=== PATIENT | female | born 1990 | race Hispanic/Latino ===

== ENCOUNTER → 2017-11-30 10:54 | Outpatient (CLI) | payer OTHER, SELFPAY ==
[2017-12-01 13:53] LABS: Strep Grp B PCR NEG for Grp B Strep
== END ==
PROVIDERS: PCP Family Medicine; Visit Provider Family Medicine
DX: Z36.9 Encounter for antenatal screening, unspecified (principal); Z3A.36 36 weeks gestation of pregnancy
CPT/HCPCS: 87653

== ENCOUNTER 2017-12-29 08:40 | Outpatient (CLI) | payer OTHER, SELFPAY ==
--- NOTE | 2017-12-29 09:32 | PM.OBTRLD ---
Visit Information Visit Information Date of evaluation: 12/29/17 Primary OB Provider: Fidelina Delaney Reason for Evaluation: Yes non-stress test non-stress test reason: other (Postdates) [facility] Medical History [place] teeth extracted (Resolved) Surgical History History of third molar tooth extraction Family History Sister Diabetes mellitus Social History marital status: unmarried,living together occupational status: employed Smoking Status: Never smoker alcohol intake: never substance use type: does not use Evaluation Evaluation Baseline heart rate: 130 Variability: Moderate (11-25) monitor accelerations: Present monitor decelerations: Absent Uterine Contraction Intensity: Mild Category of Tracing: I Diagnosis, Plan/Disposition Final Diagnosis (1) 41 weeks gestation of : Current Visit: Yes Status: Acute Plan/Disposition Plan: Postdates NST reactive. Patient scheduled for induction 12/30/17.
--- NOTE | 2017-12-29 09:35 | P.TNLD_ITS ---
Visit Information Visit Information Date of evaluation: 12/29/17 Primary OB Provider: Fidelina Delaney Reason for Evaluation: Yes non-stress test non-stress test reason: other ( Postdates) [facility] Medical History [place] teeth extracted (Resolved) Surgical History History of third molar tooth extraction Family History Sister Diabetes mellitus Social History marital status: unmarried,living together occupational status: employed Smoking Status: Never smoker alcohol intake: never substance use type: does not use Evaluation Evaluation Baseline heart rate: 130 Variability: Moderate (11-25) monitor accelerations: Present monitor decelerations: Absent Uterine Contraction Intensity: Mild Category of Tracing: I Diagnosis, Plan/Disposition Final Diagnosis (1) 41 weeks gestation of : Current Visit: Yes Status: Acute Plan/Disposition Plan: Postdates NST reactive. Patient scheduled for induction 12/30/17.
== END 2017-12-29 09:39 | disposition home or self-care (01) ==
LOC: LABOR 09:27 → OB 12-31 10:12
PROVIDERS: PCP Family Medicine; Visit Provider Family Medicine
DX: O48.0 Post-term pregnancy (principal); Z3A.41 41 weeks gestation of pregnancy
CPT/HCPCS: 59025; G0378; G0379

== ENCOUNTER 2017-12-30 18:50 | Inpatient (IN) | payer OTHER, SELFPAY ==
[2017-12-30] MEDS: miSOPROStol 25 MCG TABLET VAG (21:00)
--- NOTE | 2017-12-31 08:11 | PM.OBHP.1 ---
OB HPI Date/Time Date of admission: 12/30/17 Date Patient Seen: 12/31/17 Time Patient Seen: 08:00 History of Present Illness Chief complaint: Induction : 1 Para: 0 Estimated Date of Delivery: 12/22/17 Estimated Gestational Age (weeks): 41+2 Narrative: Parris Zambrano is a 27 year old female, at 41+2 weeks gestation her for postdates induction. Transferred care from the [facility] at 29 weeks. Indications Indication for induction OB: post dates History of Present care: good care Dating criteria: based on 2nd trimester US only Ultrasounds: normal mid trimester US Obstetrical complications: none Medical complications: none Preadmission Labs Blood type: A (+) positive -: Antibody screen: negative, GBS status: negative, HBsAG: negative, HIV: negative and RPR/VDLR: negative -: Chlamydia screen: not detected and Gonorrhea screen: not detected -: Rubella: immune and Varicella: immune HCT: 36.9 HCAB: negative Quad screen: Normal Urine: Negative 1 hr GTT: 127 Evaluation Evaluation Baseline heart rate: 130 Variability: Moderate (11-25) monitor accelerations: Present monitor decelerations: Absent Contraction Frequency (minutes): 3 Uterine Contraction Intensity: Mild Cervical dilation (cm): 0 Cervical effacement (%): 75 station: -2 PFSH Medical History [place] teeth extracted (Resolved) Surgical History History of third molar tooth extraction Family History Sister Diabetes mellitus Social History marital status: unmarried,living together occupational status: employed Smoking Status: Never smoker alcohol intake: never substance use type: does not use Meds Home Medications Medication Instructions Recorded Confirmed Type PNV #[id number] acid-omega3 1 tab PO DAILY 12/31/17 12/31/17 History Allergies Allergy/AdvReac Type Severity Reaction Status Date / Time No Known Drug Allergies Allergy Verified 12/29/17 09:12 Review of Systems Review of Systems All systems reviewed & are unremarkable except as noted in HPI and below Exam Const General: cooperative and healthy appearing [facility] Head: normal to inspection Ears: hearing grossly normal bilaterally Nose: external nose normal Face and sinus: normal facial exam Mouth: oral mucosae normal Teeth and gingiva: dentition normal Throat: posterior oropharynx normal Eyes General: appearance normal, both eyes and all related structures Neck Neck: normal visual inspection Resp Auscultation: clear to auscultation bilaterally Cardio Rate: regular rate Rhythm: regular rhythm Heart Sounds: S1 normal and S2 normal Neuro General: alert, awake and oriented x3 Cognition: normal cognition Speech: speech normal Gait: normal gait Motor: muscle tone normal throughout Extrem General: normal to inspection and no pedal edema Assessment and Plan (1) 41 weeks gestation of : Current visit: No Status: Acute Plan: Plan: 27 year old at 41+2 weeks gestation s/p one dose of Cytotec overnight. Kennedy score of 4 today. Plan - Will give Cervidil as patient was jean-paul too frequently overnight for repeat Cytotec
[2017-12-31 14:03] LABS: Add Manual Diff / Slide Review NO; Basophils Percent Auto 0.3 % (0-2); Eosinophils Percent Auto 0.4 % (2-4); Hematocrit 31.7 % (36-46); Hemoglobin 10.8 g/dL (12.0-16.0); Lymphocytes Percent Auto 13.1 % (25-40); Mean Corpuscular HGB Conc 33.9 % (30-36); Mean Corpuscular Hemoglobin 27.8 PG (26-34); Mean Corpuscular Volume 81.8 fL (80-100); Monocytes Percent Auto 5.6 % (3-14); Neutrophils Absolute Auto 8100 /uL (3000-5900); Neutrophils Percent Auto 80.6 % (50-75); Platelet Count 308 X10^3/uL (150-400); Red Blood Cell Count 3.87 X10^6/uL (4.0-5.2); Red Cell Distribution Width 14.4 % (11.6-14.8)
[2017-12-31] MEDS: DINOPROSTONE VAG (CERVIDIL) 10 MG VAG (14:25)
[2017-12-31 14:33] VITALS: BP 118/74
--- NOTE | 2018-01-01 09:14 | P.DS_ITS ---
History of Present Illness Date Patient Seen: 01/01/18 Time Patient Seen: 08:29 Chief complaint: Induction Narrative: Patient is a 27-year-old at 41 and 3 weeks gestation. Received routine care without complications. Discharge Providers Date of admission: 12/30/17 18:50 Primary care physician: Fidelina Delaney DO Discharge provider: Fidelina Delaney DO Summary Discharge Diagnosis: 41 weeks gestation Failed induction Hospital Course: Patient was brought in for postdates induction the night of 06/07. She received one dose of Cytotec however was jean-paul too frequently for repeat doses overnight. The morning of 12/31/17 she continued to contract quite frequently however cervix was still closed. After several hours contractions decreased so Cervidil was placed the afternoon of 12/31/17. heart tones were reassuring. Cervidil was removed after 12 hr. SVE per RN was 2/90/0 so Pitocin was started 3 hr after removal of Cervidil per policy. My exam this morning was FT/75/0. Cervix was softer than the day prior and infant' s head lower however no significant dilation. heart tones continued to be reassuring. Discussed options with patient - staying and trying Pitocin all day verses going home for the day day and returning tomorrow for repeat Cervidil. Patient and her wish to go home for a day and get some rest before attempting induction again tomorrow evening. Counseled patient to return sooner for rupture of membranes or signs of active labor. Patient understands and agrees with plan. Exam Vital Signs (past 8 hours): Temperature 35.9?, blood pressure 107/65, heart rate 88, respirations 16 Const General: healthy appearing and comfortable Resp Effort & Inspection: normal respiratory effort Cardio Rate: regular rate Rhythm: regular rhythm Manual OB Exam: dilated fingertip, effaced 75% and station 0 Presentation: vertex Estimated Weight (lbs): 8 Extrem General: normal to inspection and no pedal edema Objective Labs Result Diagrams: 12/31/17 13:45 Labs: Laboratory Results - last 24 hr 12/31/17 12/31/17 13:45 13:45 WBC 10.0 RBC 3.87 L Hgb 10.8 L Hct 31.7 L MCV 81.8 MCH 27.8 MCHC 33.9 RDW 14.4 Plt Count 308 Neut % (Auto) 80.6 H Lymph % (Auto) 13.1 L Dare % (Auto) 5.6 Eos % (Auto) 0.4 L Baso % (Auto) 0.3 Neut # (Auto) 8100 H Blood Type A Positive Antibody Screen Negative Discharge Plan Discharge Plan Patient Disposition: Home, Self-Care Discharge comment: Return for repeat induction 01/02/18 Discharge Med Rec/Prescriptions Prescriptions: No Action PNV #[id number] acid-omega3 1 tab PO DAILY RF: 0 Provider Discharge Instructions Other treatments: Come back Tuesday 01/02 6pm for an induction of labor. Visit Report/Discharge Packet Instructions: Is It Really Labor?, Medical Induction of Labor Visit Report Forms: Stroke Signs & Symptoms Discharge Data Primary Care Provider: Fidelina Delaney Attending Provider: Fidelina Delaney Admit Date/Time: 12/30/17 18:50 Discharges patient from system. Discharge Date/Time: 01/01/18 09:30
== END 2018-01-01 09:30 | disposition home or self-care (01) | DRG 782 ==
PROVIDERS: Admitting Provider Family Medicine; PCP Family Medicine; Visit Provider Family Medicine
DX: O48.0 Post-term pregnancy (principal); Z3A.41 41 weeks gestation of pregnancy
CPT/HCPCS: 59050; 59200; 85025; 86850; 86900; 86901; 96360; 96361; G0379

== ENCOUNTER 2018-01-02 14:45 | Observation (INO) | payer OTHER, SELFPAY ==
[2018-01-02] MEDS: hydrOXYzine 50 MG/ML INJ 25 MG IM (15:55)
[2018-01-02] MEDS: MORPHINE 10 MG/ML INJ IM (15:58)
== END 2018-01-02 16:14 | disposition home or self-care (01) ==
LOC: LABOR 14:46
PROVIDERS: Admitting Provider Family Medicine; PCP Family Medicine; Visit Provider Family Medicine
DX: O48.0 Post-term pregnancy (principal); Z3A.41 41 weeks gestation of pregnancy
CPT/HCPCS: 59025; 59050; 96372; G0378; G0379; J2270; J3410

== ENCOUNTER 2018-01-02 23:36 | Inpatient (IN) | payer OTHER, SELFPAY ==
[2018-01-03] MEDS: MORPHINE 10 MG/ML INJ IM (01:53)
[2018-01-03 02:30] VITALS: BP 126/82
--- NOTE | 2018-01-03 07:50 | PM.OBHP.1 ---
OB HPI Date/Time Date of admission: 01/03/18 Date Patient Seen: 01/03/18 Time Patient Seen: 07:30 History of Present Illness Chief complaint: EVALUATION OF LABOR : 1 Para: 0 Estimated Date of Delivery: 12/22/17 Estimated Gestational Age (weeks): 41+5 w Narrative: Patient is a 27 year old at 41+5 days by early US here for postdates induction. She was admitted for cervical ripening on 12/30/17 but discharged home on 01/01/18 after little progress with Cytotec and Cervidil. SVE at that time was 0/90/0. Patient returned to the center yesterday afternoon with painful contractions and was again sent home because she had not dilated. Patient returned early this morning with regular contractions and was admitted because she was to return today anyway for repeat induction. Cervix was again unchanged despite regular contractions. Please refer to H&P from 12/30/17 for full history. Indications Indication for induction OB: post dates History of Present care: good care Dating criteria: based on 1st trimester US only Ultrasounds: normal mid trimester US Obstetrical complications: none Medical complications: none Preadmission Labs Narrative: Please refer to H&P from 12/30/17 for labs. Evaluation Evaluation Baseline heart rate: 130 Variability: Moderate (11-25) monitor accelerations: Present monitor decelerations: Absent Uterine Contraction Intensity: Mild Category of Tracing: I Cervical dilation (cm): 0 Cervical effacement (%): 90 station: 0 PFSH Social History marital status: unmarried,living together occupational status: employed Smoking Status: Never smoker alcohol intake: never substance use type: does not use Meds Home Medications Medication Instructions Recorded Confirmed Type PNV #88-[id number]-hshsy acid-omega3 1 tab PO DAILY 12/31/17 01/03/18 History Allergies Allergy/AdvReac Type Severity Reaction Status Date / Time No Known Drug Allergies Allergy Verified 12/29/17 09:12 Review of Systems Review of Systems All systems reviewed & are unremarkable except as noted in HPI and below Exam Vital Signs (past 8 hours): - 01/03/18 02:30 Blood Pressure 126/82 H Const General: healthy appearing [facility] Head: normal to inspection Ears: hearing grossly normal bilaterally Nose: external nose normal Face and sinus: normal facial exam Mouth: oral mucosae normal Teeth and gingiva: dentition normal Eyes General: appearance normal, both eyes and all related structures Neck Neck: normal visual inspection Resp Effort & Inspection: normal respiratory effort Cardio Rate: regular rate Rhythm: regular rhythm Estimated Weight (lbs): 8 Objective Labs Result Diagrams: 01/03/18 08:10 Assessment and Plan (1) 41 weeks gestation of : Current visit: No Status: Acute Plan: Plan: 27-year-old at 41 and five weeks gestation here for second attempt at induction. Kennedy score today is 7. Will proceed with Pitocin.
[2018-01-03 08:25] LABS: Add Manual Diff / Slide Review NO; Basophils Percent Auto 0.3 % (0-2); Eosinophils Percent Auto 0.5 % (2-4); Hematocrit 32.2 % (36-46); Hemoglobin 10.7 g/dL (12.0-16.0); Lymphocytes Percent Auto 12.1 % (25-40); Mean Corpuscular HGB Conc 33.1 % (30-36); Mean Corpuscular Hemoglobin 26.9 PG (26-34); Mean Corpuscular Volume 81.1 fL (80-100); Monocytes Percent Auto 5.4 % (3-14); Neutrophils Absolute Auto 9400 /uL (3000-5900); Neutrophils Percent Auto 81.7 % (50-75); Platelet Count 301 X10^3/uL (150-400); Red Blood Cell Count 3.97 X10^6/uL (4.0-5.2); Red Cell Distribution Width 14.8 % (11.6-14.8); White Blood Cell Count 11.5 X10^3/uL (4.5-11.0)
[2018-01-03] MEDS: LACTATED RINGERS 1,000 ML 100 ML IV ×2 (09:55→23:00)
[2018-01-03] MEDS: OXYTOCIN PREMIX 30 UNIT/500 ML PLAST..BAG IV (09:55)
[2018-01-03] MEDS: fentaNYL 100 MCG/2 ML INJ 50 MCG IV (11:49)
--- NOTE | 2018-01-03 13:03 | PM.OBPNLAB ---
Date/Time Date Patient Seen: 01/03/18 Time Patient Seen: 12:30 Pain Control Comments: Patient feeling very uncomfortable, given fentanyl with improvement in pain. Pelvic Exam Dilation (cm): 4 Effacement (%): 100 station: 0 Amniotic membrane status: Intact Contractions Contraction pattern: Regular Contraction intensity: Strong/Firm Intrauterine tone measurement: 2 Status status: Category l Heart Rate Baseline: 130 Monitor Accelerations: Present Monitor Decelerations: Absent Monitor Variability: Moderate Assessment and Plan Assessment: active labor Plan: continuous present management Comments: Patient had persistent cervical exam of 0/90/0 despite regular painful contractions for many hours. Asked Dr. Cabral to examine patient due to lack of change. She was able to manually open the cervix at which point patient dilated to 4 cm. Patient requesting epidural. Discussed with Dr. Cabral who explained that patient's remote h/o cryo to her cervix likely caused some scar tissue which was preventing the cervix from dilating.
[2018-01-03] MEDS: LACTATED RINGERS 1,000 ML 125 ML IV (13:23)
--- NOTE | 2018-01-03 17:05 | PM.OBPNLAB ---
Date/Time Date Patient Seen: 01/03/18 Time Patient Seen: 17:06 Pain Control Pain control: tolerating well and epidural Pelvic Exam Dilation (cm): 5 Effacement (%): 100 station: 0 Amniotic membrane status: Ruptured (AROM pink tinged fluid) Contractions Contraction pattern: Regular Contraction intensity: Strong/Firm Status status: Category l Heart Rate Baseline: 130 Monitor Accelerations: Present Monitor Decelerations: Absent Monitor Variability: Moderate Assessment and Plan Assessment: active labor Plan: continuous present management
--- NOTE | 2018-01-03 18:52 | PM.OBPNLAB ---
Date/Time Date Patient Seen: 01/03/18 Time Patient Seen: 18:09 Pain Control Pain control: tolerating well Pelvic Exam Dilation (cm): 5 Effacement (%): 100 station: 0 Amniotic membrane status: Ruptured Comments: Contractions Pitocin rate (mU/min): 8 Contraction frequency (min): 2 Contraction pattern: Regular Contraction intensity: Strong/Firm Status status: Category l Heart Rate Baseline: 130 Monitor Accelerations: Present Monitor Decelerations: Late (during and after IUPC placement, resolved) Monitor Variability: Moderate Assessment and Plan Assessment: active labor Comments: Due to lack of cervical change the decision was made to place in IUPC after discussion with the patient. During IUPC placement there was more clear fluid and SVE after IUPC was 6/100/0. Suspect is OP. Continue frequent position change with peanut ball. Will monitor for adequate contractions with IUPC and titrate pitocin as able.
--- NOTE | 2018-01-03 20:18 | PM.OBPNLAB ---
Date/Time Date Patient Seen: 01/03/18 Time Patient Seen: 19:35 Pain Control Pain control: tolerating well and epidural Pelvic Exam Dilation (cm): 6 Effacement (%): 100 station: 0 Amniotic membrane status: Ruptured Contractions Monitor mode: Internal Pitocin rate (mU/min): 12 Contraction frequency (min): 2 Contraction pattern: Regular Contraction intensity: Strong/Firm Intrauterine tone measurement: 180 Status status: Category ll Heart Rate Baseline: 130 Monitor Accelerations: Absent Monitor Decelerations: Late (Recurrent) Monitor Variability: Minimal Assessment and Plan Comments: Patient with no cervical change, inadequate contractions as measured with IUPC and recurrent late decelerations with increased pitocin. Explained to patient and her boyfriend that without pitocin she will not dilate however fetus does not tolerate pitocin. Recommended section for failure to progress and intolerance of labor. Risks and benefits of surgery discussed with patient and boyfriend including risk of bleeding, infection and injury to surrounding organs. Also reviewed expectations for recovery. They wish to proceed with section. Consent signed and in chart.
[2018-01-03] MEDS: CEFAZOLIN 2 GM/100 ML FROZ.PIGGY IV (21:01)
--- NOTE | 2018-01-03 21:16 | SUR.OPER ---
Supine on Padded OR bed, head on pillow, safety belt at thigh, arms secured on padded arm boards at <90 degrees abduction. Bump under right buttock. Legs uncrossed with pillow under knees, gel pad to heels, tape over blanket to lower legs.
--- NOTE | 2018-01-03 21:55 | SUR.OPER ---
VIABLE MALE INFANT DELIVERED AT 2127. PLACENTA AND CORD BLOOD IN LABELED CONTAINERS TO OB WITH RN.
[2018-01-03 22:16] VITALS: BP 112/68; PULSE 83; TEMP 36.4; O2SAT 99
[2018-01-03 22:21] VITALS: BP 110/72; PULSE 78; RESP 21; O2SAT 100
--- NOTE | 2018-01-03 22:26 | SUR.PHASEI ---
Pt mostly sleeping, flat affect. C/o inability to lift her arms. Condominium Manager weak, slight rt arm lift, almost no lift to the lt arm. Pt swallowing without difficulty, denied pain.
[2018-01-03 22:27] VITALS: BP 117/70; PULSE 82; RESP 20; O2SAT 100
[2018-01-03 22:31] VITALS: BP 111/69; PULSE 81; RESP 23; O2SAT 100
--- NOTE | 2018-01-03 22:35 | SUR.PHASEI ---
Pt able to hold a cup of water and drink independently. Is more alert/awake
--- NOTE | 2018-01-03 22:35 | PM.OP.1 ---
Operative Date/Time/Diagnoses Date of procedure: 01/03/18 Time of procedure: 21:00 Pre-op diagnosis: 41 weeks Failure to progress intolerance of labor Post-op diagnosis: same Procedure & Clinicians Procedure: Primary low transverse section Same procedure as scheduled: Yes Indications: intolerance of labor Failure to progress Surgeon: Fidelina Delaney Commanding Officer Homicide Squad: Ruby Snyder Anesthesia Type: Epidural Operative Notes Findings: Occiput posterior live male infant Normal uterus, fallopian tubes and ovaries Closure Type: primary Specimen(s): other (Cord blood, placenta) Implants & Drains: Ray to continuous drainage Applied: catheter Estimated Blood Loss (mL): 1,000 Procedure in detail: The patient was taken to the operating room. She was placed in the dorsal supine position with a leftward tilt. She was prepped and draped in the usual sterile fashion. A timeout was performed. After epidural analgesia was found to be adequate, a Pfannenstiel skin incision was made 2 fingerbreadths above the pubic symphysis and carried through to the underlying layer fascia. The fascia was nicked in the midline and the incision extended bilaterally with the Gunn scissors. The superior aspect of the fascial incision was grasped with a Rebecca clamps, elevated, and the underlying rectus muscles dissected off sharply and bluntly. Attention was then turned to the inferior aspect of this incision which in a similar fashion was grasped with a Rebecca clamps, elevated, and the underlying rectus muscles dissected off sharply and bluntly. The rectus muscles were in the midline. The peritoneum was identified, grasped between 2 hemostats, and entered sharply with the Metzenbaum scissors. This incision was extended superiorly and inferiorly with good visualization of the bladder. The bladder blade was inserted. The vesicouterine peritoneum was identified, grasped with the pickup, and entered sharply with the Metzenbaum scissors. This incision was extended bilaterally, and the bladder flap was created digitally. The bladder blade was reinserted. The lower uterine segment was incised in a transverse fashion with the scalpel. Upon entering the amniotic sac there was a small amount of clear amniotic fluid. Attempt was made to deliver the infants head but unsuccessful so the rectus muscle was cut bilaterally. A vacuum was then applied and the infant's head was delivered. The nose and mouth were suctioned with bulb suction. The remainder of the body delivered without difficulty. The cord was double clamped and cut. The infant was handed off to waiting RN and RT. The placenta was delivered manually. The uterus was cleared of all clots and debris. Due to bleeding and poor visualization, the uterus was externalized and covered with a moist lap. Uterine tone improved with massage. The uterine incision was repaired with #1 chromic in a running interlocking fashion, and a second layer the same suture was used for an imbricating layer. Hemostasis was achieved. The tubes and ovaries were examined and were found to be normal. The uterus was then placed back in the abdomen. The gutters were cleared of all clots and debris. The bladder flap was reapproximated using 2-0 Vicryl in a running fashion. The parietal peritoneum was closed using 2-0 Vicryl in a running fashion. The fascia was reapproximated using 0 Vicryl in a running fashion. Subcutaneous layer was copiously irrigated with warm normal saline. 3 simple interrupted sutures of 3-0 Vicryl were placed to reapproximate the subcutaneous layer. The skin was closed with 4-0 undyed Vicryl in a subcuticular fashion. Steri-Strips were placed. An Aquacel dressing was placed. The uterus was expressed of a small amount of old blood. Sponge, lap, and instrument counts were correct. The patient tolerated the procedure well, and was taken to PACU in stable condition. Condition: stable Disposition: PACU
[2018-01-03 22:38] VITALS: BP 108/70; PULSE 84; RESP 16; TEMP 36.2; O2SAT 100
--- NOTE | 2018-01-03 22:39 | SUR.PHASEI ---
Report called to christy Hinton.
--- NOTE | 2018-01-03 22:58 | SUR.PHASEI ---
Pt transferred to the center, report to Mary Jane. VS stable. Two small areas of bleeding to park waters. Fundus at U per Mary Jane, no bloody vaginal drainage. Ray emptied, draining clear, yellow urine.
[2018-01-04] MEDS: KETOROLAC 30 MG/ML VIAL IV ×3 (04:08→16:39)
[2018-01-04] MEDS: OXYCODONE/ACETAMINOPHEN 5/325 TABLET 1 TAB PO ×5 (04:09→22:30)
[2018-01-04 08:31] LABS: Hematocrit 23.2 % (36-46); Hemoglobin 7.8 g/dL (12.0-16.0)
[2018-01-04] MEDS: DOCUSATE 250 MG CAPSULE PO (08:40)
--- NOTE | 2018-01-04 14:36 | PM.OBPN.1 ---
Subjective - OB Interval history: Patient denies complaints today. Pain is a 1/10. She has not yet walked but has sat on the side of the bed. Ray still in place. is going well. She is quite tired but has been able to rest. Patient comments: no complaints, pain well controlled and tolerating diet baby status: doing well feeding status: exclusively breast feeding Date Patient Seen: 01/04/18 Time Patient Seen: 12:57 Exam Vital Signs (past 8 hours): Oxygen Delivery Method Room Air Temperature 97.7?, blood pressure 107/68, heart rate 90, respirations 16 General: Awake and alert, no acute distress. HEENT: NCAT, EOMI, moist oral mucosa CV: Regular rate and rhythm, no murmurs, rubs or gallops Lungs: CTAB, no wheezes, rales, or rhonchi Abdomen: Soft, nontender; bowel tones active; uterus firm 1 cm below umbilicus; bandage clean with a small amount of serosanguineous drainage. Extremities: Warm, no edema, 2+ pedal pulses bilaterally Objective Labs Result Diagrams: 01/04/18 08:17 Labs: Laboratory Results - last 24 hr 01/04/18 08:17 Hgb 7.8 L Hct 23.2 L Assessment & Plan (1) 41 weeks gestation of : Status: Acute Current Visit: No (2) Status post section: Status: Acute Current Visit: Yes Plan day: 1 plan OB: routine postop care Time Spent With Patient Total time spent is greater than 50% in coordination of care (as documented) at patient's floor/unit and/or counseling patient: less than 15 minutes
[2018-01-05] MEDS: OXYCODONE/ACETAMINOPHEN 5/325 TABLET 1 TAB PO ×3 (02:55→14:31)
[2018-01-05] MEDS: IBUPROFEN 600 MG TABLET PO ×3 (02:55→14:31)
[2018-01-05] MEDS: DOCUSATE 250 MG CAPSULE PO (08:24)
[2018-01-05 09:53] VITALS: BP 98/59; PULSE 72; RESP 16; TEMP 36.9
--- NOTE | 2018-01-05 13:34 | PM.OBDS.1 ---
Discharge Providers Date of admission: 01/03/18 07:49 Primary care physician: Fidelina Delaney DO Consults: 01/03/18 22:50 Consult to Head Of Drama Routine Comment: Discharge provider: Fidelina Delaney DO Summary Date Patient Seen: 01/05/18 Time Patient Seen: 13:00 Hospital Course: Patient is a 27-year-old G1 now P1 who delivered at 41 and five weeks gestation on 01/03/18 at 07/10/27 via primary section for failure to progress and intolerance of labor. She was brought in for post-dates induction and progressed with Pitocin until 6 cm. IUPC was placed and contractions found to be inadequate despite Pitocin. could not tolerate increased Pitocin so the decision was made for primary . At the time of delivery infant was found to be direct OPP and quite difficult to deliver. was vigorous at delivery. course has been uncomplicated. is going well. Patient is ambulating, eating and voiding without difficulty. Pain is well controlled with ibuprofen and minimal Percocet. Bleeding is moderate. Counseled patient to call for fevers, bleeding through more than a pad an hour or severe pain. She will follow up in clinic in one week for a wound check. Exam General: Awake and alert, no acute distress. HEENT: NCAT, EOMI, moist oral mucosa CV: Regular rate and rhythm, no murmurs, rubs or gallops Lungs: CTAB, no wheezes, rales, or rhonchi Abdomen: Soft, nontender; bowel tones active; uterus firm 1 cm below umbilicus Extremities: Warm, no edema, 2+ pedal pulses bilaterally Peripartum Data Infant Delivery Method: Section complications: none Discharge Diagnosis (1) 41 weeks gestation of : Status: Acute (2) Status post section: Status: Acute Status at Discharge Functional status at discharge: independent ambulation Time Spent with Patient Total time spent providing and/or coordinating discharge services: Less than 30 minutes Objective Labs Result Diagrams: 01/04/18 08:17 Discharge Plan Discharge Plan Patient Disposition: Home, Self-Care Discharge Med Rec/Prescriptions Prescriptions: New oxycodone-acetaminophen 5-325 mg Tablet 1 tab PO Q4HR PRN (Reason: Pain, Moderate (4-6)) Qty: 20 RF: 0 ibuprofen 600 mg Tablet 600 mg PO Q6HR PRN (Reason: As Needed For Fever/Mild Pain) Qty: 30 RF: 0 docusate sodium 250 mg Capsule 250 mg PO DAILY Qty: 30 RF: 0 ferrous gluconate 324 mg (38 mg iron) Tablet 324 mg PO DAILY Qty: 30 RF: 0 Continue PNV #[id number] 1 tab PO DAILY RF: 0 Follow up/Referrals: Fidelina Delaney DO [Primary Care Provider] - 1 Week (Wednesday01/12/[address] Delaney) Provider Discharge Instructions Diet: Diet as Tolerated Visit Report/Discharge Packet Stand Alone Forms: Discharge: Care Visit Report Forms: Stroke Signs & Symptoms Discharge Data Primary Care Provider: Fidelina Delaney Attending Provider: Fidelina Delaney Admit Date/Time: 01/03/18 07:49 Discharges patient from system. Discharge Date/Time: 01/05/18 16:35
== END 2018-01-05 16:35 | disposition home or self-care (01) | DRG 765 ==
PROVIDERS: PCP Family Medicine; Visit Provider Family Medicine
PROC: 10D00Z1 Extraction of Products of Conception, Low, Open Approach (ICD-10-PCS; CPT 59514; principal; 2018-01-03 20:45)
DX: O48.0 Post-term pregnancy (principal); D62 Acute posthemorrhagic anemia; O62.2 Other uterine inertia; Z3A.41 41 weeks gestation of pregnancy; Z37.0 Single live birth; O77.9 Labor and delivery complicated by fetal stress, unspecified; O64.0XX0 Obstructed labor due to incomplete rotation of fetal head, not applicable or unspecified
CPT/HCPCS: 01967; 36415; 59050; 59514; 59515; 85014; 85018; 85025; 86850; 86900; 86901; 96372; G0378; G0379; J0690; J1885; J2270; J2274; J2405; J2590; J3010